=== PATIENT | female | born 1985 | race Two or more races ===

== ENCOUNTER 2017-07-27 23:39 | Emergency (ER) | payer MEDICAID, OTHER ==
[2017-07-28] MEDS ORDERED: Sodium Chloride 0.9% 10 ML Syringe FLUSH PRN (00:19)
--- NOTE | 2017-07-28 00:27 | EDM.PDOC ---
ED HPI GENERAL MEDICAL PROBLEM - General Chief Complaint: Abdominal Pain Stated Complaint: RT SIDE PELVIC PAIN Time Seen by Provider: 07/27/17 23:44 Source of Information: Reports: Patient History Limitations: Reports: No Limitations - History of Present Illness INITIAL COMMENTS - FREE TEXT/NARRATIVE: 31 y.o.w.f with a history of an ovarian cyst came to the ed due to pain at her RLQ of her abdomen in the past 2 days. BP 137/91 RR 18 Pulse ox 100 pulse 98 temp 36.8 Onset Date: 07/26/17 Onset Time: 08:00 Duration: Day(s):, Getting Worse Location: Reports: Abdomen (RLQ ) Quality: Reports: Ache, Burning, Dull, Stabbing, Throbbing Improves with: Reports: Rest Worsens with: Reports: Movement Context: Reports: Other (spontaneous) R lower abdomen Pain Score (Numeric/FACES): 8 - Related Data Allergies Allergy/AdvReac Type Severity Reaction Status Date / Time No Known Allergies Allergy Verified 07/27/17 23:50 Home Meds: Home Meds Acetaminophen [Tylenol Extra Strength] 1 - 2 tab PO Q4HR PRN 05/17/16 [History] #103/Iron Fumarate/Fa [ ] 1 tab PO DAILY 05/17/16 [ History] Past Medical History Gastrointestinal History: Reports: None Genitourinary History: Reports: None 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: Polycystic Ovaries, Other OB/BYN History: , hx ovarian cysts Psychiatric History: Reports: Anxiety Endocrine/Metabolic History: Reports: Diabetes, Gestational, Obesity/BMI 30+ - Infectious Disease History Infectious Disease History: Reports: Chicken Pox Social & Family History - Family History Family Medical History: Noncontributory - Tobacco Use Smoking Status *Q: Never Smoker Second Hand Smoke Exposure: Yes - Caffeine Use Caffeine Use: Reports: Coffee - Recreational Drug Use Recreational Drug Use: No ED ROS GENERAL - Review of Systems Review Of Systems: See Below Constitutional: Reports: No Symptoms HEENT: Reports: No Symptoms Respiratory: Reports: No Symptoms Cardiovascular: Reports: No Symptoms Endocrine: Reports: No Symptoms GI/Abdominal: Reports: Abdominal Pain (RLQ) : Reports: No Symptoms Musculoskeletal: Reports: No Symptoms Skin: Reports: No Symptoms Neurological: Reports: No Symptoms Psychiatric: Reports: No Symptoms Hematologic/Lymphatic: Reports: No Symptoms Immunologic: Reports: No Symptoms ED EXAM, GI/ABD - Physical Exam Exam: See Below Exam Limited By: No Limitations General Appearance: Alert, WD/WN, Mild Distress Eyes: Bilateral: Normal Appearance Ears: Normal External Exam Nose: Normal Inspection Throat/Mouth: Normal Inspection, Normal Lips Head: Atraumatic, Normocephalic Neck: Normal Inspection, Supple, Non-Tender Respiratory/Chest: No Respiratory Distress, Lungs Clear, Normal Breath Sounds Cardiovascular: Normal Peripheral Pulses, Regular Rate, Rhythm, No Edema GI/Abdominal Exam: Tender (RLQ of abdomen) (Female) Exam: Deferred Rectal (Female) Exam: Deferred Back Exam: Normal Inspection, Full Range of Motion Extremities: Normal Inspection, Normal Range of Motion, Non-Tender Neurological: Alert, Oriented, CN II-XII Intact, Normal Cognition Psychiatric: Normal Affect, Normal Mood Skin Exam: Warm, Dry, Intact, Normal Color, No Rash Lymphatic: No Adenopathy Course - Vital Signs Text/Narrative:: 31 y.o.w.f with a history of an ovarian cyst came to the ed due to pain at her RLQ of her abdomen in the past 2 days. BP 137/91 RR 18 Pulse ox 100 pulse 98 temp 36.8 PE; Tender RLQ of abdomen Imaging: CT Abd/pelvis neg for Appy/Ovarian Cyst Labs; Na 133, K 3.5 GFR > 60 Glc 174 WBC 9.7 UA neg HCG neg Impression: RLQ abd. tenderness, cause not determined Tx: Toradol 30 mg i.v. Reexam: improved Plan: D/C with instructions Last Recorded V/S: Last Vital Signs Temp 36.8 C 07/27/17 23:44 Pulse 98 07/27/17 23:44 Resp 18 07/28/17 01:35 BP 114/76 07/28/17 01:35 Pulse Ox 100 07/28/17 01:35 - Orders/Labs/Meds Orders: Active Orders 24 hr Category Date Time Status Abdomen Pelvis w Cont [CT] Stat Exams 07/28/17 00:53 Taken Sodium Chloride 0.9% [Saline Flush] Med 07/28/17 00:19 Active 10 ml FLUSH ASDIRECTED PRN Peripheral IV Insertion Adult [OM.PC] Routine Oth 07/28/17 00:19 Ordered Medication Orders Sodium Chloride (Saline Flush) 10 ml FLUSH ASDIRECTED PRN PRN Reason: Keep Vein Open Last Admin: 07/28/17 00:52 Dose: 10 ml Labs: Laboratory Tests 07/28/17 07/28/17 07/28/17 Range/Units 00:05 00:05 00:10 WBC 9.7 (4.5-12.0) X10-3/uL RBC 4.34 (3.23-5.20) x10(6)uL Hgb 13.9 D (11.5-15.5) g/dL Hct 38.8 (30.0-51.3) % MCV 89.4 (80-96) fL MCH 32.1 (27.7-33.6) pg MCHC 35.9 H (32.2-35.4) g/dL RDW 11.9 (11.5-15.5) % Plt Count 229 (125-369) X10(3)uL MPV 9.5 (7.4-10.4) fL Neut % (Auto) 52.1 (46-82) % Lymph % (Auto) 39.4 H (13-37) % [place] % (Auto) 5.8 (4-12) % Eos % (Auto) 2 (1.0-5.0) % Baso % (Auto) 1 (0-2) % Neut # (Auto) 5.0 (1.6-8.3) # Lymph # (Auto) 3.8 (0.6-5.0) # [place] # (Auto) 0.6 (0.0-1.3) # Eos # (Auto) 0.2 (0.0-0.8) # Baso # (Auto) 0.1 (0.0-0.2) # Sodium 133 L (135-145) mmol/L Potassium 3.5 (3.5-5.3) mmol/L Chloride 102 (100-110) mmol/L Carbon Dioxide 25 (23-29) mmol/L BUN 12 (5-20) mg/dL Creatinine 0.7 (0.6-1.3) mg/dL Est Cr Clr Drug Dosing 93.79 mL/min Estimated GFR (MDRD) > 60 (>60) BUN/Creatinine Ratio 17.1 (9-20) Glucose 172 H D (80-116) mg/dL Calcium 9.2 (8.6-10.2) mg/dL Urine Color (YELLOW) Urine Appearance (CLEAR) Urine pH (5.0-6.5) Ur Specific [place] (1.010-1.025) Urine Protein (NEGATIVE) mg/dL Urine Glucose (UA) (NEGATIVE) mg/dL Urine Ketones (NEGATIVE) mg/dL Urine Occult Blood (NEGATIVE) Urine Nitrite (NEGATIVE) Urine Bilirubin (NEGATIVE) Urine Urobilinogen (NEGATIVE) mg/dL Ur Leukocyte Esterase (NEGATIVE) Urine RBC (0) Urine WBC (0) Ur Squamous Epith Cells (NS,R,O) Urine Bacteria (NS) Urine Mucus (NS) Urine HCG, Qual Negative (NEGATIVE) 07/28/17 Range/Units 00:10 WBC (4.5-12.0) X10-3/uL RBC (3.23-5.20) x10(6)uL Hgb (11.5-15.5) g/dL Hct (30.0-51.3) % MCV (80-96) fL MCH (27.7-33.6) pg MCHC (32.2-35.4) g/dL RDW (11.5-15.5) % Plt Count (125-369) X10(3)uL MPV (7.4-10.4) fL Neut % (Auto) (46-82) % Lymph % (Auto) (13-37) % [place] % (Auto) (4-12) % Eos % (Auto) (1.0-5.0) % Baso % (Auto) (0-2) % Neut # (Auto) (1.6-8.3) # Lymph # (Auto) (0.6-5.0) # [place] # (Auto) (0.0-1.3) # Eos # (Auto) (0.0-0.8) # Baso # (Auto) (0.0-0.2) # Sodium (135-145) mmol/L Potassium (3.5-5.3) mmol/L Chloride (100-110) mmol/L Carbon Dioxide (23-29) mmol/L BUN (5-20) mg/dL Creatinine (0.6-1.3) mg/dL Est Cr Clr Drug Dosing mL/min Estimated GFR (MDRD) (>60) BUN/Creatinine Ratio (9-20) Glucose (80-116) mg/dL Calcium (8.6-10.2) mg/dL Urine Color Yellow (YELLOW) Urine Appearance Slightly cloudy (CLEAR) Urine pH 6.0 (5.0-6.5) Ur Specific [place] 1.015 (1.010-1.025) Urine Protein Negative (NEGATIVE) mg/dL Urine Glucose (UA) Normal (NEGATIVE) mg/dL Urine Ketones Negative (NEGATIVE) mg/dL Urine Occult Blood Negative (NEGATIVE) Urine Nitrite Negative (NEGATIVE) Urine Bilirubin Negative (NEGATIVE) Urine Urobilinogen 4 H (NEGATIVE) mg/dL Ur Leukocyte Esterase Negative (NEGATIVE) Urine RBC 0-5 (0) Urine WBC 0-5 (0) Ur Squamous Epith Cells Moderate H (NS,R,O) Urine Bacteria Few H (NS) Urine Mucus Few H (NS) Urine HCG, Qual (NEGATIVE) Meds: Medications Generic Name Dose Route Start Last Admin Trade Name Freq PRN Reason Stop Dose Admin Sodium Chloride 10 ml 07/28/17 00:19 07/28/17 00:52 Saline Flush FLUSH 10 ml ASDIRECTED PRN Administration Keep Vein Open Discontinued Medications Generic Name Dose Route Start Last Admin Trade Name Freq PRN Reason Stop Dose Admin Iopamidol 100 ml 07/28/17 01:06 07/28/17 01:17 Isovue-370 (76%) IV 07/28/17 01:07 100 ml . DIRECTED ONE Administration Ketorolac Tromethamine 30 mg 07/28/17 00:38 07/28/17 00:50 Toradol IVPUSH 07/28/17 00:39 30 mg ONETIME ONE Administration Departure - Departure Time of Disposition: 02:29 Disposition: Home, Self-Care 01 Condition: Good Clinical Impression: Abdominal pain Qualifiers: Abdominal location: right lower quadrant Qualified Code(s): R10.31 - Right lower quadrant pain - Discharge Information Instructions: Abdominal Pain, Adult, [id number] Referrals: Dominguez Pierson MD [Primary Care Provider] - Forms: ED Department Discharge, ED Return to Work/School Form Additional Instructions: Please take Motrin-with food- for pain, please f/u with your PMD/Surgeon for further care, come back to the ed if your symptoms get worse acutely. - My Orders Last 24 Hours: My Active Orders 07/28/17 00:19 Sodium Chloride 0.9% [Saline Flush] 10 ml FLUSH ASDIRECTED PRN Peripheral IV Insertion Adult [OM.PC] Routine 07/28/17 00:53 Abdomen Pelvis w Cont [CT] Stat - Assessment/Plan Last 24 Hours: My Active Orders 07/28/17 00:19 Sodium Chloride 0.9% [Saline Flush] 10 ml FLUSH ASDIRECTED PRN Peripheral IV Insertion Adult [OM.PC] Routine 07/28/17 00:53 Abdomen Pelvis w Cont [CT] Stat
[2017-07-28] MEDS ORDERED: Ketorolac 30 MG/ML SDV IVPUSH ONE (00:38)
[2017-07-28] MEDS ORDERED: Iopamidol 755 Mg/ML 100 ML Bottle IV ONE (01:06)
[2017-07-28 02:34] VITALS: BP 110/71
== END 2017-07-28 02:41 | disposition home or self-care (01) ==
LOC: FB.ED 23:39
DX: R10.31 Right lower quadrant pain (principal); R10.813 Right lower quadrant abdominal tenderness; E66.9 Obesity, unspecified; Z79.899 Other long term (current) drug therapy
CPT/HCPCS: 36415; 74177; 80048; 81001; 81025; 85025; 96374; 99284; J1885; J7050; Q9967

== ENCOUNTER 2017-11-01 06:49 | Day surgery (SDC) | payer OTHER ==
[~2017-11-01 06:49] MED LIST: Lactated Ringers 1,000 ML IV SCH; Sodium Chloride 0.9% 10 ML Syringe FLUSH PRN; cefOXitin 2 GM Vial IV ONE; cefOXitin 2 GM in Sodium Chloride 0.9% 100 ML IV ONE
[2017-11-01] MEDS ORDERED: Dexamethasone 4 MG/ML 5 ML MDV IVPUSH ONE (08:00)
[2017-11-01] MEDS ORDERED: Labetalol 100 MG/20 ML MDV IV ONE (08:00)
[2017-11-01] MEDS ORDERED: Glycopyrrolate 0.2 MG/ML 5 ML MDV IV ONE (08:00)
[2017-11-01] MEDS ORDERED: Rocuronium 100 MG/10 ML MDV IV ONE (08:00)
[2017-11-01] MEDS ORDERED: Ondansetron 4 MG/2 ML SDV IVPUSH ONE (08:00)
[2017-11-01] MEDS ORDERED: Neostigmine Methylsulfate 1 MG/ML 5 ML Syringe IV ONE (08:00)
[2017-11-01] MEDS ORDERED: Lactated Ringers 1,000 ML IV ONE (08:00)
[2017-11-01] MEDS ORDERED: Midazolam 1 MG/ML 2 ML SDV IV ONE (08:00)
[2017-11-01] MEDS ORDERED: fentaNYL 100 MCG/2 ML SDV IV ONE (08:00)
[2017-11-01] MEDS ORDERED: Propofol 200 MG/20 ML SDV IV ONE (08:00)
[2017-11-01] MEDS ORDERED: Ketorolac 30 MG/ML SDV IVPUSH ONE (08:00)
[2017-11-01] MEDS ORDERED: Bupivacaine 0.5% 30 ML SDV INJECT ONE (08:10)
[2017-11-01] MEDS ORDERED: Lidocaine 1% with EPINEPHrine 1:100,000 20 ML MDV INJECT ONE (08:10)
--- NOTE | 2017-11-01 08:37 | PCM.OPNOTE ---
- General Post-Op/Procedure Note Date of Surgery/Procedure: 11/01/17 Operative Procedure(s): lap cholecystectomy Findings: gallbladder and stones critical view obtained Pre Op Diagnosis: sx cholelithiasis Post-Op Diagnosis: Same Anesthesia Technique: General ET Tube, Local (9 ml 1 % lido with epi/0.5% buvipicaine) Primary Surgeon: Silverio Eastman Anesthesia Provider: Osmani Blankenship Pathology: gallbladder and contents Complications: None Condition: Good Free Text/Narrative:: see dictation
[2017-11-01] MEDS ORDERED: Morphine 10 MG/ML Syringe IVPUSH PRN (09:00)
[2017-11-01] MEDS ORDERED: Meperidine PF 75 MG/ML Syringe IV PRN (09:00)
[2017-11-01] MEDS ORDERED: diphenhydrAMINE 50 MG/ML SDV IVPUSH PRN (09:00)
[2017-11-01] MEDS ORDERED: Albuterol 0.083% 2.5 MG/3 ML Neb Soln NEB PRN (09:00)
[2017-11-01] MEDS ORDERED: Promethazine 25 MG/ML SDV IM PRN (09:00)
[2017-11-01] MEDS ORDERED: Naloxone 0.4 MG/ML SDV IVPUSH PRN (09:00)
[2017-11-01] MEDS ORDERED: fentaNYL 100 MCG/2 ML SDV IVPUSH PRN (09:00)
[2017-11-01] MEDS ORDERED: Ondansetron 4 MG/2 ML SDV IVPUSH PRN (09:00)
[2017-11-01] MEDS ORDERED: Lactated Ringers 1,000 ML IV SCH (09:00)
[2017-11-01] MEDS ORDERED: Acetaminophen/HYDROcodone 325-5 MG Tab PO PRN (09:44)
--- NOTE | 2017-11-01 10:19 | OR ---
DATE OF OPERATION: 11/01/2017 SURGEON: Silverio Eastman MD PROCEDURE PERFORMED: Laparoscopic cholecystectomy. PREOPERATIVE DIAGNOSIS: Cholelithiasis. POSTOPERATIVE DIAGNOSIS: Cholelithiasis. INDICATIONS FOR PROCEDURE: This is a 32-year-old female with symptomatic gallstones. She was offered and accepted a lap choly. DESCRIPTION OF PROCEDURE: After an excellent general anesthetic was administered, the patient was prepped and draped in the usual sterile manner. A total of 9 mL of 1:1 mixture of 1% lidocaine with epinephrine and 0.5% bupivacaine was used to infiltrate our trocar sites. We started at the level of the umbilicus where just below the umbilicus in the midline, the area was infiltrated. A small vertical midline incision was carried out with a #15 scalpel blade. Blunt dissection was carried out exposing the midline fascia. Two stay sutures of 0 Vicryl were placed on either side of the midline fascia, which was then elevated. The midline fascia was then incised and the abdominal cavity was entered. A 10.5 mm Elyssa trocar was inserted into the patient's abdomen. The patient's abdomen was then insufflated with 15 mmHg using carbon dioxide. Under direct visualization, three 5 mm ports were placed, 1 in the midline epigastrium and 2 below the right costal margin and at the approximate level of the midclavicular and anterior axillary line. The gallbladder was grasped and retracted in a cephalad fashion. The infundibulum was grasped as well. Blunt dissection was carried out dissecting the cystic duct and the cystic artery. After obtaining a critical view, 2 clips were placed proximally on the cystic duct and the cystic artery and 1 clip was placed distally on both of these structures. These structures were then transected. L-Hook cautery dissection was then used to carry out to dissect the gallbladder free from the gallbladder fossa. The specimen was passed into a specimen bag and delivered out through the umbilical port. The area was irrigated and after assuring excellent hemostasis our trocars were removed. The fascial defect in the periumbilical area was closed with a [id number] 0 Vicryl and sanju were used to close the skin. Needle, sponge, and instrument counts were reported as correct. The patient was taken to the recovery room in good condition. /[id number] SHALOM/LENKA
[2017-11-01 11:52] VITALS: BP 114/83
== END 2017-11-01 11:38 | disposition home or self-care (01) ==
LOC: FB.SDS 06:49
PROVIDERS: ATTEND Surgery
DX: K80.10 Calculus of gallbladder with chronic cholecystitis without obstruction (principal); K21.9 Gastro-esophageal reflux disease without esophagitis; F41.1 Generalized anxiety disorder; Z79.899 Other long term (current) drug therapy
CPT/HCPCS: 81025; 88304; A9270-GY; J0694; J1100; J1885; J2250; J2270; J2405; J2704; J3010; J7120